=== PATIENT | female | born 1975 | race Caucasian/White ===

== ENCOUNTER 2017-04-25 10:09 | Observation (INO) | payer OTHER ==
[2017-04-25] MEDS ORDERED: Sodium Chloride 0.9% 1000 ML 1,000 ML IV STA (10:24)
[2017-04-25] MEDS ORDERED: Zofran 4 MG/2 ML VIAL IV ONE (10:24)
[2017-04-25] MEDS ORDERED: MORPHINE SULFATE 2 MG INJ IV ONE (10:24)
[2017-04-25] MEDS ORDERED: ROCEPHIN 1 Gm-D5w 50 ml Bag** 1 G/50 ML IVPB IV STA (10:26)
--- NOTE | 2017-04-25 10:32 | ERPHSYRPT ---
- History of Present Illness Time Seen by Provider: 04/25/17 10:15 Historian: patient Exam Limitations: no limitations Patient Subjective Stated Complaint: pt here for right flank pain for a couple days with vomiting that strted last night, abd pain to right side, fever of 101 Triage Nursing Assessment: pt alert, resp easy, skin w/d,abd soft, tender to palpate Physician History: patient with N&V and some diarrhea associated with Fever and Chills and right flank pain for 2-3 days; also with UTI symptoms; simlar episode in the past with kidney infections; no travel; n exposure; city water; Timing/Duration: today (worse), day(s) (2-3 days ago onset), gradual onset, worse Activities at Onset: rest Quality: cramping (abdomen), sharpness (right flank) Abdominal Pain Onset Location: flank (right) Pain Radiation: no radiation Severity of Pain-Max: moderate Severity of Pain-Current: moderate (7/10) Modifying Factors: Improves With: urinating, vomiting Associated Symptoms: back, fever/chills, loss of appetite, nausea, vomiting Previous symptoms: same symptoms as today Allergies/Adverse Reactions: No Known Drug Allergies Allergy (Unverified 04/25/17 10:22) Home Medications: No Reportable Medications [No Reported Medications] 04/25/17 [History] Hx Influenza Vaccination/Date Given: No Hx Pneumococcal Vaccination/Date Given: No Immunizations Up to Date: Yes - Review of Systems Constitutional: Fever, Chills Eyes: No Symptoms Ears, Nose, & Throat: No Symptoms Respiratory: No Cough, No Dyspnea, No Wheezing Cardiac: No Chest Pain, No Palpitations, No Syncope Abdominal/Gastrointestinal: Abdominal Pain, Nausea, Vomiting, Diarrhea (when vomits only), No Constipation, No Hematemesis, No Hematochezia, No Melena Genitourinary Symptoms: Dysuria, Frequency, Urgency, Flank Pain (right), No Hematuria, No , No Vaginal Bleeding, No Vaginal Discharge Musculoskeletal: Back Pain, Myalgias, No Fall, No Injury Skin: No Symptoms Neurological: No Symptoms Psychological: No Symptoms Endocrine: No Symptoms Hematologic/Lymphatic: No Symptoms Immunological/Allergic: No Symptoms - Past Medical History Pertinent Past Medical History: Yes History: Other (kidney infections) - Past Surgical History Past Surgical History: Yes Female Surgical History: Section Other Surgical History: ear surgery - Social History Smoking Status: Current every day smoker Exposure to second hand smoke: Yes Alcohol Use: Socially Drug Use: none Patient Lives Alone: No Significant Family History: no pertinent family hx - Female History Hx Last Menstrual Period: now Hx Now: No - Nursing Vital Signs Nursing Vital Signs: Initial Vital Signs Temperature 98.4 F 04/25/17 10:18 Pulse Rate 100 H 04/25/17 10:18 Respiratory Rate 18 04/25/17 10:18 Blood Pressure 127/64 04/25/17 10:18 O2 Sat by Pulse Oximetry 99 04/25/17 10:18 Pain Scale Pain Intensity 10 - Physical Exam General Appearance: moderate distress, alert Eye Exam: PERRL/EOMI, eyes nml inspection, No photophobia Ears, Nose, Throat Exam: normal ENT inspection, TMs normal, pharynx normal, dry mucous membranes Neck Exam: normal inspection, non-tender, supple, full range of motion, No meningismus, No JVD, No lymphadenopathy Respiratory Exam: normal breath sounds, lungs clear, airway intact, No chest tenderness, No respiratory distress Cardiovascular Exam: regular rate/rhythm, normal heart sounds, normal peripheral pulses, tachycardia (10), capillary refill 2-3 sec, No murmur Gastrointestinal/Abdomen Exam: soft, normal bowel sounds, tenderness (mild diffuse nonspecific), No distention, No mass, No guarding, No rebound, No organomegaly Pelvic Exam: deferred Rectal Exam: deferred Back Exam: normal inspection, normal range of motion, CVA tenderness (right), No vertebral tenderness, No rash Extremity Exam: normal inspection, normal range of motion, No brenda's sign, No pedal edema Neurologic Exam: alert, oriented x 3, cooperative, 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, normal mood/affect, nml cerebellar function, nml station & gait, sensation nml Skin Exam: normal color, warm (increased), dry, No rash, No petechiae SpO2 Interpretation: normal SpO2: 99 Oxygen Delivery: Room Air - Course Nursing assessment & vital signs reviewed: Yes Ordered Tests: Active Orders 24 hr Category Date Time Status Bedrest with BRP/BSC ROUTINE Activity 04/25/17 11:30 Active Admission/Status Order ROUTINE Care 04/25/17 11:28 Active Call Admit Doctor for Orders ON ADMISSION Care 04/25/17 11:29 Active Code Status Order ROUTINE Care 04/25/17 11:28 Active IV Care Q6H Care 04/25/17 11:28 Active IV Insertion STAT Care 04/25/17 10:24 Active Re-Check Vital Signs STAT Care 04/25/17 10:24 Active Jonathan Galindo, Apply ROUTINE Care 04/25/17 11:28 Active Weight,Daily 0600 Care 04/25/17 11:28 Active Clear Liquid Diet 04/25/17 Lunch Active BLOOD CULTURE Stat Lab 04/25/17 10:48 Received CBC W DIFF Stat Lab 04/25/17 10:30 Completed CMP Stat Lab 04/25/17 10:30 Completed CULTURE,URINE Stat Lab 04/25/17 11:00 Received HCG,QUALITATIVE URINE Stat Lab 04/25/17 10:34 Completed Lactic Acid Stat Lab 04/25/17 Ordered Lactic Acid Stat Lab 04/25/17 10:36 Results UA W/ MICROSCOPIC Stat Lab 04/25/17 11:00 Completed Transfer Order Routine Transfer 04/25/17 Ordered Medication Summary Generic Name Dose Route Start Last Admin Trade Name Freq PRN Reason Stop Dose Admin Acetaminophen 650 mg 04/25/17 11:28 Tylenol 325 Mg PO 05/25/17 11:27 Q4H PRN PRN PAIN AND/OR FEVER Ceftriaxone Sodium/Dextrose 1 g in 50 mls @ 100 mls/hr 04/26/17 10:00 Rocephin 1 Gm-D5w 50 Ml Bag IV 05/26/17 09:59 Q24H10 CHELSEA Sodium Chloride 1,000 mls @ 1,000 mls/hr 04/25/17 11:30 Sodium Chloride 0.9% 1000 Ml IV 05/25/17 11:29 .Q1H CHELSEA Ondansetron HCl 4 mg 04/25/17 11:28 Zofran 4 Mg/2 Ml Vial IV 05/25/17 11:27 Q6H PRN PRN NAUSEA/VOMITING Discontinued Medications Generic Name Dose Route Start Last Admin Trade Name Freq PRN Reason Stop Dose Admin Sodium Chloride 1,000 mls @ 999 mls/hr 04/25/17 10:24 04/25/17 10:38 Sodium Chloride 0.9% 1000 Ml IV 04/25/17 11:24 999 mls/hr .Q1H1M STA Administration Ceftriaxone Sodium/Dextrose 1 g in 50 mls @ 100 mls/hr 04/25/17 10:26 10:39 Rocephin 1 Gm-D5w 50 Ml Bag IV 04/25/17 10:55 100 mls/hr STAT STA Administration Sodium Chloride Confirm 04/25/17 10:37 Sodium Chloride 0.9% 1000 Ml Administered 04/25/17 10:38 Dose 1,000 mls @ ud .ROUTE .STK-MED ONE Ceftriaxone Sodium/Dextrose Confirm 04/25/17 10:37 Rocephin 1 Gm-D5w 50 Ml Bag Administered 04/25/17 10:38 Dose 1 g in 50 mls @ ud IV .STK-MED ONE Ketorolac Tromethamine 30 mg 04/25/17 11:26 04/25/17 11:29 Toradol 30 Mg Injection IV 04/25/17 11:27 30 mg STAT ONE Administration Ketorolac Tromethamine Confirm 04/25/17 11:28 Toradol 30 Mg Injection Administered 04/25/17 11:29 Dose 30 mg .ROUTE .STK-MED ONE Morphine Sulfate 2 mg 04/25/17 10:24 04/25/17 10:38 Morphine Sulfate 2 Mg Inj IV 04/25/17 10:25 2 mg STAT ONE Administration Morphine Sulfate Confirm 04/25/17 10:37 Morphine Sulfate 2 Mg Inj Administered 04/25/17 10:38 Dose 2 mg .ROUTE .STK-MED ONE Ondansetron HCl 4 mg 04/25/17 10:24 04/25/17 10:39 Zofran 4 Mg/2 Ml Vial IV 04/25/17 10:25 4 mg STAT ONE Administration Ondansetron HCl Confirm 04/25/17 10:37 Zofran 4 Mg/2 Ml Vial Administered 04/25/17 10:38 Dose 4 mg .ROUTE .STK-MED ONE Lab/Rad Data: Laboratory Result Diagrams 04/25/17 10:30 04/25/17 10:30 Laboratory Results 04/25/17 04/25/17 04/25/17 Range/Units 11:00 10:36 10:34 WBC (4.0-10.5) K/mm3 RBC (4.1-5.4) M/mm3 Hgb (12.0-16.0) gm/dl Hct (35-47) % MCV (78-100) fl MCH (26-32) pg MCHC (32-36) g/dl RDW (11.5-14.0) % Plt Count (150-450) K/mm3 MPV (6-9.5) fl Gran % (36.0-66.0) % Lymphocytes % (24.0-44.0) % Monocytes % (0.0-12.0) % Eosinophils % (0.00-5.0) % Basophils % (0.0-0.4) % Basophils # (0-0.4) Sodium (136-145) mEq/L Potassium (3.5-5.1) mEq/L Chloride (98-107) mEq/L Carbon Dioxide (21-32) mEq/L Anion Gap (5-15) MEQ/L BUN (9-20) mg/dL Creatinine (0.55-1.30) mg/dl Estimated GFR ML/MIN Glucose (70-110) MG/DL Lactic Acid 2.1 H (0.4-2.0) Calcium (8.5-10.1) mg/dL Total Bilirubin (0.2-1.0) mg/dL AST (15-37) U/L ALT (12-78) U/L Alkaline Phosphatase (46-116) U/L Serum Total Protein (6.4-8.2) gm/dL Albumin (3.4-5.0) g/dL Ur Collection Type CATH Urine Color YELLOW (YELLOW) Urine Appearance CLOUDY (CLEAR) Urine pH 8.0 (5-6) Ur Specific Beverly 1.005 (1.005-1.025) Urine Protein 100 (Negative) Urine Ketones NEGATIVE (NEGATIVE) Urine Blood 250 (0-5) Azar/ul Urine Nitrite POSITIVE (NEGATIVE) Urine Bilirubin NEGATIVE (NEGATIVE) Urine Urobilinogen NORMAL (0-1) mg/dL Ur Leukocyte Esterase 2+ (NEGATIVE) Urine Microscopic RBC 0-2 (0-2) /HPF Urine Microscopic WBC 25-50 (0-5) /HPF Ur Epithelial Cells MODERATE (FEW) /HPF Urine Bacteria MANY (NEGATIVE) /HPF Urine Mucus SLIGHT (NEGATIVE) /HPF Urine Glucose NEGATIVE (NEGATIVE) mg/dL Urine HCG, Qual NEGATIVE (Negative) Specimen Received 04-25 1100 04/25/17 04/25/17 Range/Units 10:30 10:30 WBC 9.8 (4.0-10.5) K/mm3 RBC 5.94 H (4.1-5.4) M/mm3 Hgb 15.9 (12.0-16.0) gm/dl Hct 48.0 H (35-47) % MCV 80.8 (78-100) fl MCH 26.7 (26-32) pg MCHC 33.1 (32-36) g/dl RDW 15.7 H (11.5-14.0) % Plt Count 270 (150-450) K/mm3 MPV 9.4 (6-9.5) fl Gran % 73.4 H (36.0-66.0) % Lymphocytes % 19.9 L (24.0-44.0) % Monocytes % 6.1 (0.0-12.0) % Eosinophils % 0.2 (0.00-5.0) % Basophils % 0.4 (0.0-0.4) % Basophils # 0.04 (0-0.4) Sodium 142 (136-145) mEq/L Potassium 3.7 (3.5-5.1) mEq/L Chloride 105 (98-107) mEq/L Carbon Dioxide 22.7 (21-32) mEq/L Anion Gap 18.1 H (5-15) MEQ/L BUN 10 (9-20) mg/dL Creatinine 0.89 (0.55-1.30) mg/dl Estimated GFR > 60 ML/MIN Glucose 121 H (70-110) MG/DL Lactic Acid (0.4-2.0) Calcium 10.2 H (8.5-10.1) mg/dL Total Bilirubin 1.10 H (0.2-1.0) mg/dL AST 117 H (15-37) U/L ALT 178 H (12-78) U/L Alkaline Phosphatase 107 (46-116) U/L Serum Total Protein 8.6 H (6.4-8.2) gm/dL Albumin 4.3 (3.4-5.0) g/dL Ur Collection Type Urine Color (YELLOW) Urine Appearance (CLEAR) Urine pH (5-6) Ur Specific Beverly (1.005-1.025) Urine Protein (Negative) Urine Ketones (NEGATIVE) Urine Blood (0-5) Azar/ul Urine Nitrite (NEGATIVE) Urine Bilirubin (NEGATIVE) Urine Urobilinogen (0-1) mg/dL Ur Leukocyte Esterase (NEGATIVE) Urine Microscopic RBC (0-2) /HPF Urine Microscopic WBC (0-5) /HPF Ur Epithelial Cells (FEW) /HPF Urine Bacteria (NEGATIVE) /HPF Urine Mucus (NEGATIVE) /HPF Urine Glucose (NEGATIVE) mg/dL Urine HCG, Qual (Negative) Specimen Received - Progress Progress: improved (after meds), pain not gone completely, re-examined (after meds ) Progress Note: 04/25/17 10:32 treatment plan discussed; IV started for hydration; labs pending; ATBs started, will monitor and recheck 04/25/17 11:21 cbc ok; lactate slight elevated 2.1 giving IV fluid bolus and aTBS; ; not ; U/A shows significant infection and will be cultured; discussed treatment plan and will admit; pain not completely gone; will give Toradol and consult LMD for disposition 04/25/17 11:25 liver labs elevated; lytes ok; renal function ok; BS 121; Calcium up at 10.2; paged DR Carrasco for admission 04/25/17 11:27 will give Toradol, continue IV fluids and recheck 04/25/17 11:46 Dr Carrasco consulted and will admit; ; patient notified and agreed. Discussed with : Danilo (will consult fo rdisposition) Counseled pt/family regarding: lab results, diagnosis, need for follow-up - Departure Time of Disposition: 11:49 Departure Disposition: Observation Clinical Impression: Acute pyelonephritis, Abdominal pain, Vomiting Condition: Serious Critical Care Time: No Referrals: BOA MONAE [Emergency Provider] - NASEEM CARRASCO [ACTIVE STAFF] -
[2017-04-25] MEDS ORDERED: Sodium Chloride 0.9% 1000 ML 1,000 ML ONE (10:37)
[2017-04-25] MEDS ORDERED: ROCEPHIN 1 Gm-D5w 50 ml Bag** 1 G/50 ML IVPB IV ONE (10:37)
[2017-04-25] MEDS ORDERED: Zofran 4 MG/2 ML VIAL ONE (10:37)
[2017-04-25] MEDS ORDERED: MORPHINE SULFATE 2 MG INJ ONE (10:37)
[2017-04-25 10:42] LABS: Lactic Acid 2.1 (0.4-2.0)
[2017-04-25 10:45] LABS: BASOPHIL % 0.4 % (0.0-0.4); Eosinophil % 0.2 % (0.00-5.0); Granulocytes % 73.4 % (36.0-66.0); Lymphocytes % 19.9 % (24.0-44.0); Mean Cell Volume 80.8 fl (78-100); Mean Platelet Volume 9.4 fl (6-9.5); Monocytes % 6.1 % (0.0-12.0); Platelet Count 270 K/mm3 (150-450); Red Blood Count 5.94 M/mm3 (4.1-5.4); Red Cell Distribution Width 15.7 % (11.5-14.0); White Blood Count 9.8 K/mm3 (4.0-10.5)
[2017-04-25 10:50] LABS: Mean Corpuscular Hemoglobin 26.7 pg (26-32)
[2017-04-25 11:09] LABS: Collection Type CATH; Leukocyte Esterase 2+ (NEGATIVE)
[2017-04-25 11:10] LABS: Bilirubin NEGATIVE (NEGATIVE); Blood 250 Ery/ul (0-5); COMPLETE URINE MICROSCOPIC? YES; Glucose NEGATIVE (NEGATIVE)
[2017-04-25 11:15] LABS: Mucus SLIGHT /HPF (NEGATIVE)
[2017-04-25 11:16] LABS: ADD URINE CULTURE? YES (NO); Bacteria MANY /HPF (NEGATIVE); Epithelial Cells MODERATE /HPF (FEW); WBC 25-50 /HPF (0-5)
[2017-04-25 11:16] LABS: ALBUMIN 4.3 g/dL (3.4-5.0); ALKALINE PHOSPHATASE 107 U/L (46-116); ANION GAP 18.1 MEQ/L (5-15); BLOOD UREA NITROGEN 10 mg/dL (9-20); CHLORIDE 105 mEq/L (98-107); Carbon Dioxide 22.7 mEq/L (21-32); Glucose 121 MG/DL (70-110); Potassium 3.7 mEq/L (3.5-5.1); SGOT/AST 117 U/L (15-37); SGPT/ALT 178 U/L (12-78); SODIUM 142 mEq/L (136-145); Total Protein 8.6 gm/dL (6.4-8.2)
[2017-04-25] MEDS ORDERED: TORAdol 30 mg Injection IV ONE (11:26)
[2017-04-25] MEDS ORDERED: TYLENOL 325 MG PO PRN (11:28)
[2017-04-25] MEDS ORDERED: TORAdol 30 mg Injection ONE (11:28)
[2017-04-25] MEDS ORDERED: Sodium Chloride 0.9% 1000 ML 1,000 ML IV SCH (11:30)
[2017-04-25] MEDS ORDERED: Phenergan 25 MG INJ IV PRN (13:57)
[2017-04-25] MEDS: MORPHINE SULFATE 2 MG INJ IV PRN ×5 (14:21→23:39)
[2017-04-25] MEDS: Nicoderm CQ 21 MG TOP SCH (18:51)
[2017-04-25] MEDS: Dextrose 5% -0.45 NaCl 1000 ML 1,000 ML IV SCH (18:52)
[2017-04-25] MEDS: Zofran 4 MG/2 ML VIAL IV PRN (20:17)
[2017-04-25] MEDS ORDERED: Sodium Chloride 0.9% 1000 ML 0 ML ONE (20:53)
[2017-04-25] MEDS: ATARAX 25 MG PO SCH (21:59)
[2017-04-25] MEDS: Phenergan 25 MG INJ IV PRN (22:05)
[2017-04-25 23:35] VITALS: O2SAT 94
[2017-04-26] MEDS: MORPHINE SULFATE 2 MG INJ IV PRN ×6 (03:02→15:01)
[2017-04-26] MEDS: Dextrose 5% -0.45 NaCl 1000 ML 1,000 ML IV SCH (05:00)
[2017-04-26 05:30] LABS: BASOPHIL % 0.3 % (0.0-0.4); Eosinophil % 1.2 % (0.00-5.0); Granulocytes % 58.9 % (36.0-66.0); Lymphocytes % 28.8 % (24.0-44.0); Mean Cell Volume 83.8 fl (78-100); Mean Corpuscular Hemoglobin 26.8 pg (26-32); Mean Platelet Volume 9.4 fl (6-9.5); Monocytes % 10.8 % (0.0-12.0); Platelet Count 216 K/mm3 (150-450); Red Blood Count 5.18 M/mm3 (4.1-5.4); Red Cell Distribution Width 15.6 % (11.5-14.0); White Blood Count 9.6 K/mm3 (4.0-10.5)
[2017-04-26] MEDS: Phenergan 25 MG INJ IV PRN ×2 (05:35→15:06)
[2017-04-26 05:59] LABS: ALBUMIN 3.2 g/dL (3.4-5.0); ALKALINE PHOSPHATASE 82 U/L (46-116); ANION GAP 11.9 MEQ/L (5-15); BLOOD UREA NITROGEN 8 mg/dL (9-20); CHLORIDE 109 mEq/L (98-107); Carbon Dioxide 26.2 mEq/L (21-32); Glucose 108 MG/DL (70-110); Potassium 3.8 mEq/L (3.5-5.1); SGOT/AST 73 U/L (15-37); SGPT/ALT 131 U/L (12-78); SODIUM 143 mEq/L (136-145); Total Protein 7.1 gm/dL (6.4-8.2)
--- NOTE | 2017-04-26 07:40 | HP ---
HISTORY OF PRESENT ILLNESS: This is a 42 year-old patient from out of town who presented to the emergency department. When I spoke with her this evening, she reports she has had right-sided back pain for the past two days. She denies any radiation. She also reports some right upper quadrant abdominal pain. She reports nausea and vomiting for two days and diarrhea. She reports a fever up to 101.1F. Two days ago she also had some dysuria, denies any blood in her urine. She reported that sometimes it is hard to get her urine stream started. She has been taking fluids well. REVIEW OF SYSTEMS: Review of systems is limited as the patient just wants to sleep, is not interested in answering questions. PAST MEDICAL HISTORY: The patient reports restless leg syndrome. According to the home medicines she takes she would also have neuropathy and mood disorder. 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 MEDICATIONS: Gabapentin 800 mg p.o. t.i.d., hydroxyzine 25 mg p.o. t.i.d., Lamictal 75 mg p.o. b.i.d., trazodone 100 mg p.o. t.i.d. as needed. ALLERGIES: NKDA. SOCIAL HISTORY: She reports that she is from [place] and staying with friends right now. She reports smoking one and a half packs per day of cigarettes, denies any illicit drug use. She is not currently employed. FAMILY HISTORY: Her mother is and she cannot remember if she had any major health problems. Her father is living. Again, she cannot name if he has any major health problems. PHYSICAL EXAMINATION: VITAL SIGNS: Temperature current 98.2F, temperature max 98.4F, heart rate 56 to 100 currently 76, respiratory rate 18, blood pressure 117 to 157 over 50 to 88, weight 86.5 kg. Oxygen saturation 95 to 95% on room air. GENERAL: The patient is lying in bed. She is sleepy but arousable and in no acute distress. CVS: She has a regular rate and rhythm. No murmurs, gallops or rubs are appreciated. CHEST: Clear to auscultation bilaterally. No crackles or wheezes. ABDOMEN: Mild tenderness in the right upper quadrant and right lower quadrant. No guarding. No rigidity. Normal bowel sounds. EXTREMITIES: No clubbing, cyanosis or edema. BACK: She has some tenderness in the right costovertebral angle. LABORATORY DATA AND TESTS: CBC is within normal limits. Calcium was slightly elevated at 10.2. AST 117, ALT 178, bilirubin 1.1. UA 25-50 white blood cells, moderate epithelial cells, many bacteria on this cath specimen. Urine culture is lab. Blood cultures are in lab. ASSESSMENT AND PLAN: 1) ACUTE RIGHT PYELONEPHRITIS: She has been started on ceftriaxone IV. Urine culture is in lab. I will check renal ultrasound tomorrow and will continue with pain control with morphine 2 mg IV every four hours as needed. She has Tylenol ordered as needed for pain. 2) VOMITING: She has sulcralfate and Phenergan ordered as needed and will start IV fluids. She also received fluids in the emergency room. 3) ELEVATED LIVER FUNCTION TESTS: Will recheck these in the a.m. and also check a hepatitis profile for hepatitis A, B and C. 4) MOOD DISORDER: Will continue her home hydroxyzine 25 mg t.i.d. as needed for anxiety.
[2017-04-26] MEDS: Zofran 4 MG/2 ML VIAL IV PRN (07:56)
--- NOTE | 2017-04-26 09:03 | XRAY ---
Exam: Renal ultrasound from 04/25/2017. Comparison: None. Indication: Pyelonephritis. Findings: The right kidney measures 12.8 cm x 5.3 cm x 5.6 cm and is remarkable for at least mild hydronephrosis. In addition, there is an echogenic focus within the lower pole of the right kidney which causes posterior acoustical shadowing measuring 1.4 cm x 1.6 cm in diameter. This is suspicious for a lower pole right renal stone. Consider further evaluation with a CT of the abdomen and pelvis without IV contrast. Right renal cortex thickness measures 0.8 cm within the lower pole on a sagittal image. The left kidney measures 12.3 cm x 4.4 cm x 4.7 cm. Renal cortex thickness is 1.1 cm at the upper pole on a sagittal image. No left renal mass or hydronephrosis is seen. No dominant stones are seen within the left kidney. The urinary bladder is mildly distended and appears unremarkable. A left ureteral jet was seen with color-flow imaging. The right ureteral jet was unable to be identified. Impression: 1. There is at least mild right-sided hydronephrosis. This is asymmetric with respect to the left kidney. Further evaluation with a CT of the abdomen and pelvis without IV contrast is recommended. 2. In addition, there is a 1.4 cm x 1.6 cm echogenic focus causing posterior acoustical shadowing within the lower pole of the right kidney which may represent a dominant right renal stone. 3. No other abnormality of the kidneys is seen. 4. A right ureteral jet was not seen with color flow imaging. The left ureteral jet at the level the bladder appeared unremarkable.
--- NOTE | 2017-04-26 09:05 | PCM.NOTE ---
Date and Time: 04/26/17 0859 Subjective Assessment: She reports she continues to have right flank pain, right sided abdominal pain. She had her renal US last night but no official report. I had made her npo thinking her renal us would be this AM. Will await results before letting her eat this AM. Will try clear liquids when diet is advanced. She reports less dysuria today and reports the pain medication does help some with her pain. - Review of Systems Constitutional: Fatigue, Other (She reports trouble sleeping x 2 days) Eyes: No Symptoms Ears, Nose, & Throat: No Symptoms Respiratory: No Symptoms Cardiac: No Symptoms Abdominal/Gastrointestinal: Abdominal Pain, Nausea, Vomiting Genitourinary Symptoms: Dysuria Musculoskeletal: No Symptoms Skin: No Symptoms Objective Exam General Appearance: no apparent distress, alert, other (friend at bedside) Neurologic Exam: alert, cooperative, normal mood/affect Skin Exam: normal color, warm, dry, No rash Respiratory Exam: normal breath sounds, lungs clear, No crackles/rales, No rhonchi, No wheezing Cardiovascular Exam: regular rate/rhythm, normal heart sounds, No murmur, No friction rub, No gallop Gastrointestinal/Abdomen Exam: soft, tenderness, other (mild right upper quadrant tenderness and left flank tenderness), No distention, No guarding Extremity Exam: other (no c/c/e) OBJECTIVE DATA Vital Signs: Vital Signs - 24 hr Temp Pulse Resp BP BP Pulse Ox 04/26/17 03:53 98.4 F 65 16 102/58 94 L 04/25/17 23:34 99.3 F 73 16 115/62 94 L 04/25/17 20:00 98.8 F 74 16 132/67 95 04/25/17 16:00 98.2 F 76 18 157/88 95 04/25/17 13:23 98.4 F 56 L 18 129/81 98 04/25/17 12:08 98.4 F 56 L 129/81 04/25/17 12:05 98.4 F 56 L 18 129/81 98 04/25/17 11:50 98.4 F 56 L 18 129/81 98 04/25/17 11:49 99 04/25/17 11:15 68 16 117/50 98 04/25/17 10:18 98.4 F 100 H 18 127/64 99 Pain Assessment - Last Documented Pain Intensity 9 Pain Scale Used 0-10 Pain Scale Intake and Output: Intake & Output 04/24/17 04/25/17 04/26/17 04/27/17 06:59 06:59 06:59 06:59 Intake Total 1120 852 Output Total 0 0 Balance 1120 852 Weight 86.591 kg Lab Results: Lab Results-Last 24 Hours 04/25/17 04/25/17 04/26/17 Range/Units 13:45 17:30 05:05 WBC 9.6 (4.0-10.5) K/mm3 RBC 5.18 (4.1-5.4) M/mm3 Hgb 13.9 (12.0-16.0) gm/dl Hct 43.4 (35-47) % MCV 83.8 (78-100) fl MCH 26.8 (26-32) pg MCHC 32.0 (32-36) g/dl RDW 15.6 H (11.5-14.0) % Plt Count 216 (150-450) K/mm3 MPV 9.4 (6-9.5) fl Gran % 58.9 (36.0-66.0) % Lymphocytes % 28.8 (24.0-44.0) % Monocytes % 10.8 (0.0-12.0) % Eosinophils % 1.2 (0.00-5.0) % Basophils % 0.3 (0.0-0.4) % Basophils # 0.03 (0-0.4) Sodium (136-145) mEq/L Potassium (3.5-5.1) mEq/L Chloride (98-107) mEq/L Carbon Dioxide (21-32) mEq/L Anion Gap (5-15) MEQ/L BUN (9-20) mg/dL Creatinine (0.55-1.30) mg/dl Estimated GFR ML/MIN Glucose (70-110) MG/DL Lactic Acid 1.8 (0.4-2.0) Calcium (8.5-10.1) mg/dL Total Bilirubin (0.2-1.0) mg/dL AST (15-37) U/L ALT (12-78) U/L Alkaline Phosphatase (46-116) U/L Serum Total Protein (6.4-8.2) gm/dL Albumin (3.4-5.0) g/dL Urine Opiates Level NEG. (NEGATIVE) Ur Methadone NEG. (NEGATIVE) Urine Barbiturates NEG. (NEGATIVE) Ur Phencyclidine (PCP) NEG. (NEGATIVE) Urine Amphetamine NEG. (NEGATIVE) U Benzodiazepine Level NEG. (NEGATIVE) Urine Cocaine NEG. (NEGATIVE) Urine Marijuana (THC) NEG. (NEGATIVE) 04/26/17 Range/Units 05:05 WBC (4.0-10.5) K/mm3 RBC (4.1-5.4) M/mm3 Hgb (12.0-16.0) gm/dl Hct (35-47) % MCV (78-100) fl MCH (26-32) pg MCHC (32-36) g/dl RDW (11.5-14.0) % Plt Count (150-450) K/mm3 MPV (6-9.5) fl Gran % (36.0-66.0) % Lymphocytes % (24.0-44.0) % Monocytes % (0.0-12.0) % Eosinophils % (0.00-5.0) % Basophils % (0.0-0.4) % Basophils # (0-0.4) Sodium 143 (136-145) mEq/L Potassium 3.8 (3.5-5.1) mEq/L Chloride 109 H (98-107) mEq/L Carbon Dioxide 26.2 (21-32) mEq/L Anion Gap 11.9 (5-15) MEQ/L BUN 8 L (9-20) mg/dL Creatinine 0.83 (0.55-1.30) mg/dl Estimated GFR > 60 ML/MIN Glucose 108 (70-110) MG/DL Lactic Acid (0.4-2.0) Calcium 8.9 (8.5-10.1) mg/dL Total Bilirubin 0.80 (0.2-1.0) mg/dL AST 73 H (15-37) U/L ALT 131 H (12-78) U/L Alkaline Phosphatase 82 (46-116) U/L Serum Total Protein 7.1 (6.4-8.2) gm/dL Albumin 3.2 L (3.4-5.0) g/dL Urine Opiates Level (NEGATIVE) Ur Methadone (NEGATIVE) Urine Barbiturates (NEGATIVE) Ur Phencyclidine (PCP) (NEGATIVE) Urine Amphetamine (NEGATIVE) U Benzodiazepine Level (NEGATIVE) Urine Cocaine (NEGATIVE) Urine Marijuana (THC) (NEGATIVE) Radiology Exams: Radiology Procedures Category Date Time Status Renal Ultrasound [KIDNEY] [US] Routine Exams 04/25/17 Taken Assessment/Plan (1) Acute pyelonephritis Current Visit: Yes Status: Acute Assessment & Plan: Continue ceftriaxone, urine culture is growing a gram neg organism. Awaiting ID and sensitivity. Code(s): N10 - ACUTE PYELONEPHRITIS (2) Hydronephrosis Current Visit: Yes Status: Acute Qualifiers: Hydronephrosis type: unspecified Qualified Code(s): N13.30 - Unspecified hydronephrosis Assessment & Plan: Radiologist verbally reports mild right hydronephrosis and would like a CT scan to look for kidney stones in the ureter. Code(s): N13.30 - UNSPECIFIED HYDRONEPHROSIS (3) Vomiting Current Visit: Yes Status: Acute Code(s): R11.10 - VOMITING, UNSPECIFIED (4) Elevated liver enzymes Current Visit: Yes Status: Acute Assessment & Plan: Improving, hepatitis panel ordered Code(s): R74.8 - ABNORMAL LEVELS OF OTHER SERUM ENZYMES (5) Mood disorder Current Visit: Yes Status: Acute Assessment & Plan: restart home medications (6) Peripheral neuropathy Current Visit: Yes Status: Acute Assessment & Plan: Restart gabapentin Code(s): G62.9 - POLYNEUROPATHY, UNSPECIFIED
[2017-04-26] MEDS ORDERED: ENOXAPARIN SODIUM SQ SCH (10:00)
[2017-04-26] MEDS ORDERED: ROCEPHIN 1 Gm-D5w 50 ml Bag** 1 G/50 ML IVPB IV SCH (10:00)
[2017-04-26] MEDS ORDERED: FLUCELVAX QUAD 2017-2018 SYR IM ONE (10:00)
[2017-04-26] MEDS ORDERED: lamICTAL 100MG TABLET PO SCH (10:00)
[2017-04-26] MEDS: Nicoderm CQ 21 MG TOP SCH (10:31)
[2017-04-26] MEDS: Neurontin 400 MG PO SCH ×2 (10:32→12:45)
[2017-04-26] MEDS: ATARAX 25 MG PO SCH ×2 (10:32→14:39)
--- NOTE | 2017-04-26 11:38 | XRAY ---
Exam: CT of the abdomen and pelvis without IV contrast from 04/26/2017. CTDI: 22.90 Comparison: Renal ultrasound examination from 04/25/2017. Indication: Abdominal pain, mild right-sided hydronephrosis, prior history of bilateral kidney stones 3 years ago, back pain. Technique: Non-IV contrast axial images were obtained through the abdomen and pelvis. Reconstructed coronal and sagittal images were created and reviewed. Findings: Minimal posterior dependent atelectatic changes are seen at the lung bases. Otherwise, the lung bases appear clear. There is some diffuse decreased attenuation within the liver suggestive of hepatic steatosis. No intrahepatic biliary duct distention is seen. The gallbladder is distended and reveals no dense calcifications within it. The spleen appears at the upper limits of normal in size. No focal mass is seen within the spleen. The pancreas and adrenal glands appear unremarkable. Multiple small renal calculi are seen at the corticomedullary junction of both kidneys. There is also a 3 mm stone seen near the superior cortex of the left kidney. The largest stone within the kidneys is seen within the lower pole of the right kidney and measures about 14-15 mm in greatest diameter. The next largest stone on the right is seen within the middle third of the right kidney on axial image #45 and measures about 2.4 mm in diameter. There is asymmetric hydronephrosis on the right with an apparent obstructing prominent stone at the UPJ junction measuring about 8 mm x 10 mm in diameter. In addition, the right ureter beyond the UPJ stone also appears dilated measuring up to 12-13 mm in diameter on axial image #62. This could be due to a recently passed stone. I do not see a definite ureteral calculus beyond this point within the right ureter, although there are some small right pelvic calcifications which I believe likely represent phleboliths. I also detect a couple curvilinear densities on each side of the pelvic midline which appear to be due to pelvic surgical clips, better delineated on the CT parker film. The largest stone within the left kidney is seen within the renal pelvis measuring about 9 mm x 7 mm. It is not causing obstruction at this time. Other much smaller stones are seen at the cortical medullary junction of the left kidney as well. The left ureter appears of normal diameter. No definite ureteral stone is seen on the left. Incidentally, the urinary bladder is only minimally distended limiting evaluation. I see no abdominal aortic aneurysm or abnormal retroperitoneal lymphadenopathy. Minimal atherosclerotic vascular calcification is seen within the distal abdominal aorta. No free intraperitoneal air is seen. The bowel loops are not distended. No definite bowel wall thickening is seen. I see no findings of appendicitis within the right lower quadrant. The uterus is anteflexed and tilted to the right of midline. There is a probable vaginal tampon in place. No free intraperitoneal fluid is seen. The right ovary appears grossly unremarkable on axial images #92 through #96. The left ovary is more anteriorly located within the left hemipelvis and appears unremarkable on axial images #94 through #96. Minimal sigmoid colon diverticulosis without evidence of diverticulitis is seen. The skeleton reveals no acute fractures. No suspicious bone lesions are seen. Mild to moderate facet joint arthropathy is seen bilaterally at L4-L5. There is also mild facet joint arthropathy at L5-S1 on the right. Impression: 1. Bilateral renal calculi are seen, the largest within the lower pole of the right kidney measuring 14 mm to 15 mm in diameter. I also note mild to moderate hydronephrosis on the right which appears to be due to an obstructing right ureteropelvic junction stone, the latter measuring 8 mm x 10 mm in diameter. I also note abnormal distention of the proximal right ureter just beyond the UPJ stone. I do not see a definite ureteral stone distal to the UPJ stone. This proximal to mid right ureteral distention could be due to a recently passed right ureteral stone. I believe there are some small calcified phleboliths within the lower right pelvis. The left kidney reveals a nonobstructing 9 mm x 7 mm stone within the left renal pelvis. Other much smaller stones are seen near the corticomedullary junction, similar to the right kidney. There also appears to be a 3 mm stone near the superior margin of the left renal cortex on sagittal image #133. 2. Hepatic steatosis. 3. No evidence of appendicitis. 4. A couple curvilinear clips are seen on each side of the pelvis from prior surgery. Correlate with surgical history. 5. Minimal sigmoid colon diverticulosis without evidence of diverticulitis.
[2017-04-26 11:43] VITALS: BP 92/54; PULSE 74
[2017-04-26] MEDS ORDERED: DESYREL 50 MG PO SCH (22:00)
[2017-04-27 13:16] LABS: HEPATITIS B VIRUS CORE TOT AB Non Reactive (Non Reactive)
== END 2017-04-26 15:20 | disposition short-term general hospital (02) ==
LOC: ED 10:09 → MED SURG 12:04
PROVIDERS: ADMIT Internal Medicine; ATTEND Internal Medicine
DX: N10 Acute pyelonephritis (principal); R11.10 Vomiting, unspecified; R94.5 Abnormal results of liver function studies; F39 Unspecified mood [affective] disorder; N13.30 Unspecified hydronephrosis; G62.9 Polyneuropathy, unspecified
CPT/HCPCS: 36000; 36415; 74176; 76770; 80053; 80074; 80307; 81000; 83605; 84703; 85025; 87040; 87077; 87086; 87186; 96360; 96361; 96365; 96374; 96375; 99285; G0008; G0378; J0696; J1650; J1885; J2270; J2405; J2550; 90682; A9270-GY

== ENCOUNTER 2017-05-14 13:34 | Emergency (ER) | payer OTHER ==
[2017-05-14] MEDS ORDERED: Compazine 10 MG/2 ML IV ONE (14:07)
[2017-05-14] MEDS ORDERED: Sodium Chloride 0.9% 1000 ML 1,000 ML IV STA (14:07)
[2017-05-14] MEDS ORDERED: TORAdol 30 mg Injection IV ONE (14:07)
[2017-05-14] MEDS ORDERED: Sodium Chloride 0.9% 1000 ML 1,000 ML ONE (14:13)
[2017-05-14] MEDS ORDERED: TORAdol 30 mg Injection ONE (14:13)
[2017-05-14] MEDS ORDERED: Compazine 10 MG/2 ML ONE (14:13)
--- NOTE | 2017-05-14 14:17 | ERPHSYRPT ---
- History of Present Illness Time Seen by Provider: 05/14/17 14:12 Historian: patient Exam Limitations: no limitations Patient Subjective Stated Complaint: Pt states "I have kidney stones and I had a stent in but I made them take it out two weeks ago when I had hydrotherapy. That was in my right kidney, I was told I have a stone in my left kidney and that is why I am here today. I cannot handle pain". Triage Nursing Assessment: Pt alert and oriented X 3, skin pwd. Pt ambulates with an upright steady gait, able to speak in full clear sentences. Pt fidgeting, restless. Physician History: Pt states "I have kidney stones and I had a stent in but I made them take it out two weeks ago when I had hydrotherapy. That was in my right kidney, I was told I have a stone in my left kidney and that is why I am here today. I cannot handle pain". patient is 42-year-old female had a History of recurrent renal stone, 3 weeks ago she had left ureteric stone. Stent was placed in an afterward patient underwent lithotripsy. She continued to have a pain on her left side, so she talked to the urologist and wanted her stent to be removed. Urologist remove the Stent , today she came to the emergency room with complaining of pain on the left side of the flank seemed like she had when she had a previous kidney stone. Timing/Duration: today Activities at Onset: none Quality: aching, cramping, stabbing Abdominal Pain Onset Location: flank (left) Pain Radiation: LLQ Severity of Pain-Max: moderate Severity of Pain-Current: moderate Modifying Factors: Improves With: nothing Associated Symptoms: nausea, No fever/chills Previous symptoms: same symptoms as today Allergies/Adverse Reactions: No Known Drug Allergies Allergy (Unverified 04/25/17 10:22) Home Medications: Gabapentin 800 mg PO QID 04/25/17 [History] Hydroxyzine HCl 25 mg PO TID 04/25/17 [History] Lamotrigine [Lamictal] 75 mg PO BID 04/25/17 [History] Trazodone HCl 50 mg [Desyrel 50 mg] 100 mg PO TIDPRN PRN 04/25/17 [History ] Hx Tetanus, Diphtheria Vaccination/Date Given: Yes Hx Influenza Vaccination/Date Given: Yes Hx Pneumococcal Vaccination/Date Given: No Immunizations Up to Date: Yes - Review of Systems Constitutional: No Fever, No Chills Eyes: No Symptoms Ears, Nose, & Throat: No Symptoms Respiratory: No Cough, No Dyspnea Cardiac: No Chest Pain, No Edema, No Syncope Abdominal/Gastrointestinal: Abdominal Pain, Nausea, No Vomiting, No Diarrhea Genitourinary Symptoms: Dysuria, Frequency Musculoskeletal: No Back Pain, No Neck Pain Skin: No Rash Neurological: No Dizziness, No Focal Weakness, No Sensory Changes Psychological: No Symptoms Endocrine: No Symptoms All Other Systems: Reviewed and Negative - Past Medical History Pertinent Past Medical History: Yes History: Other Psycho-Social History: Bipolar, Depression Other Medical History: mable kidney stones with stent placement and lithotripsy, RLS, neuropathy - Past Surgical History Past Surgical History: Yes Female Surgical History: Section Other Surgical History: ear surgery - Social History Smoking Status: Current every day smoker How long have you smoked: 25 Exposure to second hand smoke: Yes Alcohol Use: Socially Drug Use: none Patient Lives Alone: No Significant Family History: no pertinent family hx - Female History Hx Last Menstrual Period: 05/06/2017 Hx Now: No - Nursing Vital Signs Nursing Vital Signs: Initial Vital Signs Temperature 98.2 F 05/14/17 13:41 Pulse Rate 92 H 05/14/17 13:41 Respiratory Rate 18 05/14/17 13:41 Blood Pressure 140/78 05/14/17 13:41 O2 Sat by Pulse Oximetry 98 05/14/17 13:41 Pain Scale Pain Intensity 8 - Physical Exam General Appearance: no apparent distress, alert Eye Exam: PERRL/EOMI, eyes nml inspection Ears, Nose, Throat Exam: normal ENT inspection, pharynx normal, moist mucous membranes Neck Exam: normal inspection, non-tender, supple, full range of motion Respiratory Exam: normal breath sounds, lungs clear, No respiratory distress Cardiovascular Exam: regular rate/rhythm, normal heart sounds Gastrointestinal/Abdomen Exam: soft, No tenderness, No mass Back Exam: normal inspection, normal range of motion, No CVA tenderness, No vertebral tenderness Extremity Exam: normal inspection, normal range of motion, pelvis stable Neurologic Exam: alert, oriented x 3, cooperative, normal mood/affect, nml cerebellar function, sensation nml, No motor deficits Skin Exam: normal color, warm, dry SpO2: 98 Oxygen Delivery: Room Air - Course Nursing assessment & vital signs reviewed: Yes - CT Exams Abdomen/Pelvis CT Interpretation: Tele-radiologist Report (Left UPJ stone 10 mm) Ordered Tests: Active Orders 24 hr Category Date Time Status Clean Catch Urine Specimen STAT Care 05/14/17 15:20 Active IV Insertion STAT Care 05/14/17 14:03 Active ABDOMEN AND PELVIS W/0 CONTRAS [CT] Stat Exams 05/14/17 14:07 Taken CBC W DIFF Stat Lab 05/14/17 14:00 Completed CMP Stat Lab 05/14/17 14:00 Completed CULTURE,URINE Stat Lab 05/14/17 14:00 Received UA W/ MICROSCOPIC Stat Lab 05/14/17 14:00 Completed Medication Summary Generic Name Dose Route Start Last Admin Trade Name Freq PRN Reason Stop Dose Admin Fentanyl Citrate 50 mcg 05/14/17 15:45 Sublimaze 100 Mcg/2 Ml IV 05/14/17 15:46 STAT ONE Discontinued Medications Generic Name Dose Route Start Last Admin Trade Name Freq PRN Reason Stop Dose Admin Sodium Chloride 1,000 mls @ 999 mls/hr 05/14/17 14:07 05/14/17 14:17 Sodium Chloride 0.9% 1000 Ml IV 05/14/17 15:07 999 mls/hr .Q1H1M STA Administration Sodium Chloride Confirm 05/14/17 14:13 Sodium Chloride 0.9% 1000 Ml Administered 05/14/17 14:14 Dose 1,000 mls @ ud .ROUTE .STK-MED ONE Ceftriaxone Sodium/Dextrose 2 g in 50 mls @ 100 mls/hr 05/14/17 14:43 15:04 Rocephin 2 Gm-D5w 50ml Bag IV 05/14/17 15:12 100 mls/hr STAT STA Administration Ceftriaxone Sodium/Dextrose Confirm 05/14/17 14:58 Rocephin 2 Gm-D5w 50ml Bag Administered 05/14/17 14:59 Dose 2 g in 50 mls @ ud IV .STK-MED ONE Ketorolac Tromethamine 30 mg 05/14/17 14:07 05/14/17 14:17 Toradol 30 Mg Injection IV 05/14/17 14:08 30 mg STAT ONE Administration Ketorolac Tromethamine Confirm 05/14/17 14:13 Toradol 30 Mg Injection Administered 05/14/17 14:14 Dose 30 mg .ROUTE .STK-MED ONE Prochlorperazine Edisylate 10 mg 05/14/17 14:07 05/14/17 14:17 Compazine 10 Mg/2 Ml IV 05/14/17 14:08 10 mg STAT ONE Administration Prochlorperazine Edisylate Confirm 05/14/17 14:13 Compazine 10 Mg/2 Ml Administered 05/14/17 14:14 Dose 10 mg .ROUTE .fypioK-MED ONE Lab/Rad Data: Laboratory Result Diagrams 05/14/17 14:00 05/14/17 14:00 Laboratory Results 05/14/17 05/14/17 05/14/17 Range/Units 14:00 14:00 14:00 WBC 9.2 (4.0-10.5) K/mm3 RBC 5.45 H (4.1-5.4) M/mm3 Hgb 15.0 (12.0-16.0) gm/dl Hct 45.3 (35-47) % MCV 83.1 (78-100) fl MCH 27.5 (26-32) pg MCHC 33.1 (32-36) g/dl RDW 16.5 H (11.5-14.0) % Plt Count 256 (150-450) K/mm3 MPV 9.1 (6-9.5) fl Gran % 61.5 (36.0-66.0) % Lymphocytes % 27.7 (24.0-44.0) % Monocytes % 9.3 (0.0-12.0) % Eosinophils % 1.2 (0.00-5.0) % Basophils % 0.3 (0.0-0.4) % Basophils # 0.03 (0-0.4) Sodium 139 (136-145) mEq/L Potassium 4.2 (3.5-5.1) mEq/L Chloride 104 (98-107) mEq/L Carbon Dioxide 22.6 (21-32) mEq/L Anion Gap 16.8 H (5-15) MEQ/L BUN 16 (9-20) mg/dL Creatinine 0.88 (0.55-1.30) mg/dl Estimated GFR > 60 ML/MIN Glucose 112 H (70-110) MG/DL Calcium 9.9 (8.5-10.1) mg/dL Total Bilirubin 0.60 (0.2-1.0) mg/dL AST 108 H (15-37) U/L ALT 237 H (12-78) U/L Alkaline Phosphatase 122 H (46-116) U/L Serum Total Protein 7.5 (6.4-8.2) gm/dL Albumin 3.9 (3.4-5.0) g/dL Ur Collection Type VOID Urine Color YELLOW (YELLOW) Urine Appearance CLEAR (CLEAR) Urine pH 7.0 (5-6) Ur Specific [place] 1.015 (1.005-1.025) Urine Protein NEGATIVE (Negative) Urine Ketones NEGATIVE (NEGATIVE) Urine Blood 250 (0-5) Azar/ul Urine Nitrite NEGATIVE (NEGATIVE) Urine Bilirubin NEGATIVE (NEGATIVE) Urine Urobilinogen NORMAL (0-1) mg/dL Ur Leukocyte Esterase TRACE (NEGATIVE) Urine Microscopic RBC >100 (0-2) /HPF Urine Microscopic WBC 2-5 (0-5) /HPF Ur Epithelial Cells FEW (FEW) /HPF Urine Bacteria FEW (NEGATIVE) /HPF Urine Mucus SLIGHT (NEGATIVE) /HPF Urine Culture Reflexed YES (NO) Urine Glucose NEGATIVE (NEGATIVE) mg/dL Specimen Received 05/14/17 1410 - Progress Progress: improved, pain not gone completely Discussed with Dr.: Other (Dr Gio Claudio at [facility]) Counseled pt/family regarding: lab results, diagnosis, need for follow-up, rad results - Departure Time of Disposition: 15:46 Departure Disposition: Transfer ([facility] ) Clinical Impression: Obstruction of left ureteropelvic junction (UPJ) due to stone, Elevated liver enzymes Condition: Stable Critical Care Time: Yes Critical Care Time(excluding separately billable procedures): 30-74 minutes Referrals: NASEEM GUTIERREZ [Primary Care Provider] - Instructions: Kidney Stones
[2017-05-14 14:18] LABS: ADD URINE CULTURE? YES (NO); BASOPHIL % 0.3 % (0.0-0.4); Bilirubin NEGATIVE (NEGATIVE); Blood 250 Ery/ul (0-5); COMPLETE URINE MICROSCOPIC? YES; Collection Type VOID; Eosinophil % 1.2 % (0.00-5.0); Glucose NEGATIVE (NEGATIVE); Granulocytes % 61.5 % (36.0-66.0); Leukocyte Esterase TRACE (NEGATIVE); Lymphocytes % 27.7 % (24.0-44.0); Mean Cell Volume 83.1 fl (78-100); Mean Corpuscular Hemoglobin 27.5 pg (26-32); Mean Platelet Volume 9.1 fl (6-9.5); Monocytes % 9.3 % (0.0-12.0); Platelet Count 256 K/mm3 (150-450); Red Blood Count 5.45 M/mm3 (4.1-5.4); Red Cell Distribution Width 16.5 % (11.5-14.0); White Blood Count 9.2 K/mm3 (4.0-10.5)
[2017-05-14 14:24] LABS: Bacteria FEW /HPF (NEGATIVE); Epithelial Cells FEW /HPF (FEW); Mucus SLIGHT /HPF (NEGATIVE)
[2017-05-14 14:36] LABS: ALBUMIN 3.9 g/dL (3.4-5.0); ALKALINE PHOSPHATASE 122 U/L (46-116); ANION GAP 16.8 MEQ/L (5-15); BLOOD UREA NITROGEN 16 mg/dL (9-20); CHLORIDE 104 mEq/L (98-107); Carbon Dioxide 22.6 mEq/L (21-32); Glucose 112 MG/DL (70-110); Potassium 4.2 mEq/L (3.5-5.1); SGOT/AST 108 U/L (15-37); SGPT/ALT 237 U/L (12-78); SODIUM 139 mEq/L (136-145); Total Protein 7.5 gm/dL (6.4-8.2)
[2017-05-14] MEDS ORDERED: ROCEPHIN 2 Gm-D5w 50ML BAG** 2 G/50 ML IVPB IV STA (14:43)
[2017-05-14] MEDS ORDERED: ROCEPHIN 2 Gm-D5w 50ML BAG** 2 G/50 ML IVPB IV ONE (14:58)
[2017-05-14] MEDS ORDERED: SUBLIMAZE 100 MCG/2 ML IV ONE (15:45)
[2017-05-14] MEDS ORDERED: SUBLIMAZE 100 MCG/2 ML ONE (15:48)
[2017-05-14 16:44] VITALS: BP 129/78; PULSE 80; O2SAT 97
--- NOTE | 2017-05-14 22:49 | XRAY ---
Indication: Abdominal pain. History of kidney stones. Multiple contiguous axial images obtained through the abdomen and pelvis without contrast using renal stone protocol. Comparison: April 26, 2017. Lung bases clear. Heart is not enlarged. Previous right UPJ calculus not seen either extracted or passed in the interim. New 10 mm left UPJ calculus with mild hydronephrosis but no perinephric fluid/stranding. There remains again bilateral renal micro-calculi and nephrocalcinosis. Noncontrasted stomach and bowel loops appear nonobstructed. Normal appendix. No free fluid/air. Again there are bilateral tubal ligation clips. Remaining liver, gallbladder, pancreas, spleen, adrenal glands, bladder, and aorta appear unremarkable. Impression: 1. New 10 mm left UPJ extracting calculus. 2. There remains bilateral renal calculi and nephrocalcinosis. Comment: Preliminary interpretation was made by [facility]. No discrepancy. CTDI 23.70
[2017-05-16 06:30] LABS: HEPATITIS B VIRUS CORE TOT AB Non Reactive (Non Reactive)
[2017-05-16 06:31] LABS: Hepatitis B Surface Ab.Quant. 87.99 mIU/mL (0.00-8.49)
== END 2017-05-14 16:45 | disposition short-term general hospital (02) ==
LOC: ED 13:34
DX: N13.5 Crossing vessel and stricture of ureter without hydronephrosis (principal); R74.8 Abnormal levels of other serum enzymes; Z79.899 Other long term (current) drug therapy
CPT/HCPCS: 36000; 36415; 74176; 80053; 80074; 81000; 85025; 87086; 96360; 96365; 96374; 96375; 99284; 99285; J0696; J1885; J3010